=== PATIENT | male | born 1980 | race Caucasian/White ===

== ENCOUNTER 2018-07-03 22:31 | Emergency (ER) | payer OTHER, SELFPAY ==
[2018-07-03 22:33] VITALS: BP 117/77; PULSE 97; RESP 15; TEMP 36.4; O2SAT 96; BMI 29.9
[2018-07-03 22:46] VITALS: BP 158/90; PULSE 88; RESP 16; TEMP 36.7; O2SAT 95
--- NOTE | 2018-07-03 23:15 | ED.DCSUM_ITS ---
History of Present Illness Chief Complaint: Nausea/Vomiting/Diarrhea Informant: Patient Onset: Days - 3 Context: Gradual Onset Timing: Intermittent Quality: nonbloody diarrhea, nonbloody/nonbilious emesis Current Severity: Severe Maximum Severity: Severe Worsened by: eating/drinking Relieved by: nothing Associated Symptoms: malaise, asthma wheezing, abd sore but no sig pain, dark urine w less OP Narrative: No known sick contacts. He has been having fevers off and on, not today. He is feeling malaised. He is healthy otherwise except for his asthma, which is also flaring up a little. No recent travel or antibiotics. - Past Medical History (1) Asthma Status: Chronic Past Medical History - Allergies and Home Meds Allergies/Adverse Reactions: Allergies amoxicillin Allergy (Verified 07/03/18 22:36) Hives Primary Care Physician: Lea Dinh,Out of [Primary Care Provider] - Smoking Status: Current every day smoker Drugs: None Review of Systems General: Reports: Chills, Fever, Malaise. Denies: Sweats Eyes: Denies: Visual changes - bilaterally, Diplopia ENT: Denies: Rhinorrhea, Sore throat Cardiovascular: Denies: Chest pain, Palpitations Respiratory: Denies: Dyspnea, Cough, Dyspnea on exertion Gastrointestinal: Reports: Nausea, Vomiting, Diarrhea. Denies: Abdominal pain, Melena, Hematochezia Genitourinary: Denies: Dysuria, Hematuria, Frequency Musculoskeletal: Denies: Neck pain, Back pain, Swelling, Extremity Pain Skin: Denies: Rash, Wounds Neurological: Denies: Headache, Weakness, Numbness Psych: Denies: Depression, Anxiety Endocrine: Denies: Polyuria, Polydipsia Hematologic: Denies: Easy bruising, Easy bleeding Allergy: Denies: Swelling of the mouth, Swelling of the tongue Physical Exam Vital Signs/Narrative: Vital Signs Temp Pulse Resp BP Pulse Ox 07/03/18 22:46 98.0 F 88 16 158/90 H 95 07/03/18 22:33 97.5 F L 97 15 117/77 96 Inital Vital Signs reviewed: Yes General: Well nourished, Well developed, - - appears malaised, NAD. keenly alert. Head: Normocephalic, Atraumatic Eyes: Perrl, EOMI ENT: No rhinorrhea, Dry mucous membranes - partially Neck: Supple, Nontender Cardiovascular: Regular rate, Regular rhythm, No murmurs Respiratory: No distress, CTA bilaterally, Chest nontender Abdomen: Soft, Nontender, Nondistended, Normal bowel sounds Back: Nontender, Normal Inspection Extremities: Nontender, No edema Skin: Normal color, No rash Neurological: Alert, Oriented x3, Cranial nerves II-XII grossly intact, Normal Strength, Normal Sensation Psychological: Normal affect Diagnostic/Tx/Re-eval Laboratory Tests 07/03/18 Range/Units 22:55 Sodium 140 (136-145) mmol/L Potassium 3.4 L (3.5-5.1) mmol/L Chloride 108 H (98-107) mmol/L Carbon Dioxide 25.0 (21.0-32.0) mmol/L Anion Gap 7 (5-15) BUN 17 (7-18) mg/dL Creatinine 0.86 (0.70-1.30) mg/dL Estim Creat Clear Calc 117.60 ml/min Est GFR (MDRD) Af Amer 129 (>60) mL/min Est GFR (MDRD) Non-Af 107 (>60) mL/min BUN/Creatinine Ratio 19.9 (10-20) RATIO Glucose 106 (74-106) mg/dL Calcium 8.5 (8.5-10.1) mg/dL - Medical Decision Making Patient has mildly low potassium but the rest of his electrolytes are unremarkable. He was given a liter of fluid and Zofran, he felt better on reevaluation but still felt malaised, which is not unexpected. He passed an oral fluid challenge, declined a request for another bag of fluid, was given a dose of Imodium and potassium and discharged home with a prescription for Zofran. Likely viral illness, supportive care advised and close outpatient follow-up if symptoms do not resolve in another 1-2 days. ED Disposition - Plan for ED Patient: Disposition: Home or Assisted Living Chief Complaint: Nausea/Vomiting/Diarrhea Diagnosis: Viral gastroenteritis, Hypokalemia due to loss of potassium Instructions: ED Gastroenteritis Viral Prescriptions: Ondansetron [Zofran] 8 mg PO Q8H PRN PRN #10 tab PRN Reason: Nausea Referrals: [facility] Doctor,Out of [Primary Care Provider] - 3-5 Days if not improving
[2018-07-03] MEDS: 0.9% Normal Saline 1,000 ML 999 ML IV (23:16)
[2018-07-03] MEDS: Ondansetron 4 MG/2 ML Vial IV (23:17)
[2018-07-03 23:25] LABS: Anion Gap 7 (5-15); BUN 17 mg/dL (7-18); BUN/Creat Ratio 19.9 RATIO (10-20); Calcium,Total 8.5 mg/dL (8.5-10.1); Chloride 108 mmol/L (98-107); Creatinine, Serum 0.86 mg/dL (0.70-1.30); EST Glomerular Filtration Rate 107 mL/min (>60); Est Glom Filt Rate - Afr Amer 129 mL/min (>60); Glucose 106 mg/dL (74-106); Potassium 3.4 mmol/L (3.5-5.1); Sodium Level 140 mmol/L (136-145)
[2018-07-03 23:29] VITALS: PULSE 80; RESP 16
[2018-07-04] MEDS: Ipratropium/Albuterol Sulfate 3 ML AMPUL.NEB INHALATION (00:35)
[2018-07-04 00:52] VITALS: BP 125/76; PULSE 82; RESP 16; TEMP 36.8; O2SAT 98
[2018-07-04 00:54] VITALS: BP 125/76; PULSE 82; RESP 16; O2SAT 98
== END 2018-07-04 00:54 | disposition home or self-care (01) ==
PROVIDERS: Emergency Provider Emergency Medicine
DX: A08.4 Viral intestinal infection, unspecified (principal); E87.6 Hypokalemia; J45.909 Unspecified asthma, uncomplicated; F17.200 Nicotine dependence, unspecified, uncomplicated
CPT/HCPCS: 80048; 94640; 96361; 96374; 99285; J7030; A4216; J2405

== ENCOUNTER 2018-08-02 00:53 | Emergency (ER) | payer SELFPAY ==
[2018-08-02 00:56] VITALS: BP 153/102; PULSE 92; RESP 18; TEMP 36.4; O2SAT 97; BMI 30.8
--- NOTE | 2018-08-02 01:12 | ED.DCSUM_ITS ---
- ER Visit Summary Date of Service: 08/02/18 Chief Complaint: Facial pain and swelling History of Present Illness: The patient is a 37 M who presents with left facial pain and swelling. He states that he knows he has bad teeth. He has had multiple prior dental procedures. He has been complaining of pain in 1 of his left upper teeth and face for a couple of weeks. He has been having some relief with Tylenol and ibuprofen. However his pain was significantly worse today and he also developed facial swelling. No heat or cold sensitivity. No fevers. No nausea vomiting diarrhea. Physical Examination: Afebrile vitals are unremarkable except blood pressure 153/102 Patient appears uncomfortable There is some left facial edema Widespread dental decay severe decay of the left maxillary first premolar with tenderness on palpation or percussion No trismus, clear voice Neck supple no lymphadenopathy Test Results: Not indicated Emergency Department Course and Treatment: Patient has findings consistent with a dental abscess. I do not appreciate a focal area of fluctuance amenable to incision and drainage here in the emergency department. Patient will be treated with clindamycin. He was also given [place] for pain control. He was advised to follow-up with a dentist and was given a list of dental clinics in the area. Treatment Plan: [] Disposition: Discharge Impression: Dental abscess This note was generated with eMagin dictation software. It may contain incorrect words, spelling, and punctuation that were not noted in review of the chart prior to signing ED Disposition - Plan for ED Patient: Chief Complaint: Dental Referrals: [facility] Doctor,Out of [Primary Care Provider] -
--- NOTE | 2018-08-02 01:12 | ED.DEP ---
ED Disposition - Plan for ED Patient: Chief Complaint: Dental Instructions: ED Abscess Dental Prescriptions: Hydrocodone Bitart/Apap 5-325 [[place] 5MG-325MG] 1 tablet PO Q6H PRN 2 Days #8 tablet PRN Reason: Pain Clindamycin HCl [Cleocin] 300 mg PO TID #30 capsule Referrals: [facility] Doctor,Out of [Primary Care Provider] -
--- NOTE | 2018-08-02 01:13 | DCINST.ED_ITS ---
ED Disposition - Plan for ED Patient: Chief Complaint: Dental Instructions: ED Abscess Dental Prescriptions: Hydrocodone Bitart/Apap 5-325 [[place] 5MG-325MG] 1 tablet PO Q6H PRN 2 Days #8 tablet PRN Reason: Pain Clindamycin HCl [Cleocin] 300 mg PO TID #30 capsule Referrals: [facility] Doctor,Out of [Primary Care Provider] -
[2018-08-02] MEDS: HYDROcodone Bitartrate/Apap 5/325 Tablet PO (01:19)
[2018-08-02] MEDS: Clindamycin HCl 150 MG Capsule 300 MG PO (01:19)
== END 2018-08-02 01:36 | disposition home or self-care (01) ==
LOC: ED 01:25
PROVIDERS: Emergency Provider Emergency Medicine
DX: K04.7 Periapical abscess without sinus (principal); K02.9 Dental caries, unspecified; J45.909 Unspecified asthma, uncomplicated; Z72.0 Tobacco use; Z79.899 Other long term (current) drug therapy
CPT/HCPCS: 99283

== ENCOUNTER 2018-10-20 16:53 | Emergency (ER) | payer SELFPAY ==
[2018-10-20 16:54] VITALS: BP 158/98; PULSE 107; RESP 16; TEMP 36.4; O2SAT 98; BMI 31.6
--- NOTE | 2018-10-20 17:18 | ED.DEP ---
ED Disposition - Plan for ED Patient: Instructions: ED Tooth Pain Prescriptions: Hydrocodone Bitart/Apap 5-325 [[place] 5MG-325MG] 1 tablet PO Q6H PRN PRN 3 Days #6 tablet PRN Reason: Pain Clindamycin [Cleocin] 300 mg PO 4X/DAY #80 capsule Referrals: [facility] Doctor,Out of [Primary Care Provider] -
--- NOTE | 2018-10-20 17:19 | DCINST.ED_ITS ---
ED Disposition - Plan for ED Patient: Instructions: ED Tooth Pain Prescriptions: Hydrocodone Bitart/Apap 5-325 [[place] 5MG-325MG] 1 tablet PO Q6H PRN PRN 3 Days #6 tablet PRN Reason: Pain Clindamycin [Cleocin] 300 mg PO 4X/DAY #80 capsule Referrals: [facility] Doctor,Out of [Primary Care Provider] -
--- NOTE | 2018-10-20 17:23 | ED.DCSUM_ITS ---
- ER Visit Summary Date of Service: 10/20/18 Chief Complaint: Dental pain History of Present Illness: The patient is a 38 M presenting with dental pain. He states this has been ongoing for the past 2 days. He complains of facial pain and swelling. He denies fever. He does not currently have a dentist. Denies other complaints. Physical Examination: Vitals are stable. Patient is afebrile. Alert no acute distress. HEENT exam widespread dental decay, tenderness left upper molar, no surrounding fluctuance. No sublingual edema. Neck is supple. Lungs are clear and equal bilaterally. Heart is regular rate and rhythm. Extremities are unremarkable. Skin is warm and dry. Remainder of exam is unremarkable. Emergency Department Course and Treatment: Patient was given clindamycin, short course of [place]. He is advised to follow-up with dentist. He is given a dental referral list. Advised to return to the ED for worsening complaints. Disposition: Discharge home Impression: Odontalgia This note was generated with docTrackr dictation software. It may contain incorrect words, spelling, and punctuation that were not noted in review of the chart prior to signing ED Disposition - Plan for ED Patient: Instructions: ED Tooth Pain Prescriptions: Hydrocodone Bitart/Apap 5-325 [[place] 5MG-325MG] 1 tablet PO Q6H PRN PRN 3 Days #6 tablet PRN Reason: Pain Clindamycin [Cleocin] 300 mg PO 4X/DAY #80 capsule Referrals: [facility] Doctor,Out of [Primary Care Provider] -
[2018-10-20] MEDS: HYDROcodone Bitartrate/Apap 5/325 Tablet PO (17:37)
[2018-10-20] MEDS: Clindamycin HCl 150 MG Capsule 300 MG PO (17:38)
== END 2018-10-20 17:39 | disposition home or self-care (01) ==
LOC: ED 17:27
PROVIDERS: Emergency Provider Emergency Medicine
DX: K08.89 Other specified disorders of teeth and supporting structures (principal); J45.909 Unspecified asthma, uncomplicated; K21.9 Gastro-esophageal reflux disease without esophagitis; Z72.0 Tobacco use; Z79.899 Other long term (current) drug therapy
CPT/HCPCS: 99283

== ENCOUNTER 2018-12-28 00:41 | Emergency (ER) | payer SELFPAY ==
[2018-12-28 00:42] VITALS: BP 116/83; PULSE 88; RESP 18; TEMP 36.4; O2SAT 97; BMI 32.6
--- NOTE | 2018-12-28 01:02 | ED.VISSUMM ---
- ER Visit Summary Date of Service: 12/28/18 Chief Complaint: Shortness of breath History of Present Illness: The patient is a 38 M who presents with shortness of breath. He is felt this way for the last few hours. He does have a history of asthma and is out of his albuterol inhaler. He has a mild cough. No chest pain. No vomiting diarrhea or recent illness. No fever Physical Examination: Afebrile vitals normal pulse ox 97% normal respiratory rate Moist mucous membranes Heart regular rate and rhythm Lungs are clear no rales rhonchi wheezing speaking in full sentences no increased work of breathing Alert Test Results: Not indicated Emergency Department Course and Treatment: Patient was given a prescription for an albuterol inhaler which can be filled here from the hospital prior to discharge. Treatment Plan: [] Disposition: Discharge Impression: Asthma This note was generated with [employer]pler dictation software. It may contain incorrect words, spelling, and punctuation that were not noted in review of the chart prior to signing ED Disposition - Plan for ED Patient: Referrals: [facility] Doctor,Out of [Primary Care Provider] -
--- NOTE | 2018-12-28 01:03 | ED.DEP ---
ED Disposition - Plan for ED Patient: Instructions: ASTHMA, Acute (Adult) Prescriptions: Albuterol Inhaler [Ventolin Hfa] 1 - 2 puff INHALATION Q4H PRN PRN #1 inhaler PRN Reason: Wheezing Prescription Printed Referrals: [facility] Doctor,Out of [Primary Care Provider] -
== END 2018-12-28 02:12 | disposition home or self-care (01) ==
LOC: ED 01:14
PROVIDERS: Emergency Provider Emergency Medicine
DX: J45.909 Unspecified asthma, uncomplicated (principal); K21.9 Gastro-esophageal reflux disease without esophagitis; Z72.0 Tobacco use; Z79.899 Other long term (current) drug therapy
CPT/HCPCS: 99283

== ENCOUNTER 2019-08-27 19:55 | Emergency (ER) | payer SELFPAY ==
[2019-08-27 19:57] VITALS: BP 141/98; PULSE 90; RESP 18; TEMP 36.6; O2SAT 98; BMI 34.2
--- NOTE | 2019-08-27 20:14 | ED.VIS.URI ---
History of Present Illness Chief Complaint: Med Refill Detail of Chief Complaint: cough/sob Onset: Weeks - 1 Context: Gradual Onset Timing: Continuous Quality: wheezing Location: chest Current Severity: Mild Maximum Severity: Moderate Worsened by: - - coughing Relieved by: - - albuterol MDI Associated Symptoms: Nasal Congestion, Productive Cough, - - no fevers. Negative for: Headache, Sinus Pressure, Nausea, Vomiting, Shortness of Breath, Hemoptysis Narrative: Patient states he has a history of asthma and used to be on Breo for maintenance which did help, but his insurance ran out, his free Breo for a year ran out, and now he has nothing for maintenance and so needs albuterol daily to help with his wheezing. Currently he has had a cold for about a week and his asthma has been flared up, he has been using his inhaler every 3-4 hours during every day, and states he needs a refill on his inhaler. Denies any fevers. No swelling in his legs. - Past Medical History (1) Asthma Status: Chronic Past Medical History - Allergies and Home Meds Allergies/Adverse Reactions: Allergies amoxicillin Allergy (Verified 08/27/19 19:59) Priya Primary Care Physician: Lea Doctor,Out of [Primary Care Provider] - Smoking Status: Current every day smoker Review of Systems General: Denies: Chills, Fever, Sweats Eyes: Denies: Visual changes - bilaterally, Diplopia ENT: Reports: Rhinorrhea. Denies: Bilateral ear pain, Sore throat Cardiovascular: Denies: Chest pain, Palpitations Respiratory: Reports: Dyspnea, Cough, Sputum - Occasional phlegm, no hemoptysis, Dyspnea on exertion. Denies: Orthopnea Gastrointestinal: Denies: Abdominal pain, Nausea, Vomiting, Diarrhea, Melena, Hematochezia Genitourinary: Denies: Dysuria, Hematuria, Frequency Musculoskeletal: Denies: Back pain, Swelling, Extremity Pain Skin: Denies: Rash, Wounds Neurological: Denies: Headache, Weakness, Numbness Physical Exam Vital Signs/Narrative: Vital Signs Temp Pulse Resp BP Pulse Ox 08/27/19 19:57 97.8 F 90 18 141/98 H 98 Inital Vital Signs reviewed: Yes General: Well nourished, Well developed, - - NAD. Conversive in full sentences. Head: Normocephalic, Atraumatic Eyes: Perrl, EOMI Nose: Normal Inspection, No Rhinorrhea, Congestion Neck: Supple, Nontender Cardiovascular: Regular rate, Regular rhythm, No murmurs Respiratory: No distress, Chest nontender, Wheezing - Mild expiratory. Negative for: Rales, Rhonchi Skin: Normal color, No rash, No Trauma Neurological: Alert, Oriented x3, Cranial nerves II-XII grossly intact, Normal Strength, Normal Sensation, Normal Gait Psychological: Normal affect, Normal Mood Diagnostic/Tx/Re-eval - Medical Decision Making Consistent with a viral URI and exacerbation of his asthma. He was amenable to an injection of Kenalog and a prescription for a new albuterol inhaler. ED Disposition - Plan for ED Patient: Disposition: Home or Assisted Living Diagnosis: Asthma exacerbation, Viral upper respiratory infection Instructions: Understanding Asthma, TRIAMCINOLONE, IM (long acting) Prescriptions: Albuterol Inhaler [Ventolin Hfa] 1 - 2 puff INHALATION Q4H PRN PRN #1 inhaler PRN Reason: Wheezing Prescription Printed Referrals: [facility] Doctor,Out of [Primary Care Provider] - 1 Week if not improving
[2019-08-27] MEDS: Triamcinolone Acetonide 40 MG/ML Vial IM (20:43)
== END 2019-08-27 20:59 | disposition home or self-care (01) ==
PROVIDERS: Emergency Provider Emergency Medicine
DX: J06.9 Acute upper respiratory infection, unspecified (principal); J45.901 Unspecified asthma with (acute) exacerbation; F17.200 Nicotine dependence, unspecified, uncomplicated; Z79.899 Other long term (current) drug therapy
CPT/HCPCS: 96372; 99282

== ENCOUNTER 2019-12-21 18:11 | Emergency (ER) | payer MEDICAID, SELFPAY ==
[2019-12-21 18:13] VITALS: BP 147/93; PULSE 100; RESP 16; TEMP 36.7; O2SAT 95; BMI 35.1
--- NOTE | 2019-12-21 18:30 | ED.VISSUMM ---
- ER Visit Summary Date of Service: 12/21/19 Chief Complaint: Suture removal and medication refill History of Present Illness: The patient is a 39 M who reports that he had stitches placed in his right index finger a couple of weeks ago and needs these taken out. He also needs a refill on his albuterol MDI. He denies any signs of infection. No drainage or pain. Physical Examination: Vitals: Stable. Afebrile. General: Well-nourished and well-developed. Head: Normocephalic atraumatic. Neck: Supple, no lymphadenopathy. No JVD. Nontender. Cardiovascular: Regular rate and rhythm. No murmurs. Respiratory: No respiratory distress. Clear to auscultation bilaterally. Abdominal: Soft, nontender, nondistended, normal bowel sounds. No guarding, rebound, or peritoneal signs. Back: Nontender. Extremities: Nontender, no edema. Right index finger has [address] over the back of the proximal phalanx. The laceration is well-healed. There is slight erythema. There is no induration, fluctuance, drainage, or evidence of infection. Skin: Normal color, no rash. Neurologic: Alert and oriented ?3. Cranial nerves II through XII are intact. Normal strength and sensation. Psych: Normal affect. Emergency Department Course and Treatment: Patient had a stitches removed. He tolerated this well. Treatment Plan: Patient will be discharged with albuterol MDI prescription and instructed to follow-up his primary care physician as needed. Return to the emergency department for any worsening symptoms. Disposition: To home in improved and stable condition. Impression: 1. Suture removal. 2. Medication refill. This note was generated with [employer] dictation software. It may contain incorrect words, spelling, and punctuation that were not noted in review of the chart prior to signing ED Disposition - Plan for ED Patient: Disposition: Home or Assisted Living Instructions: ED Stitches/Staple Removal No Complication Prescriptions: Albuterol Inhaler [Ventolin Hfa] 2 puff INHALATION Q4H PRN PRN #1 inhaler PRN Reason: Wheezing Prescription Printed Referrals: Doctor,Your [STAFF PHYSICIAN] - Keep Brianna appointment
== END 2019-12-21 18:45 | disposition home or self-care (01) ==
LOC: ED 18:43
PROVIDERS: Emergency Provider Emergency Medicine
DX: S61.210D Laceration without foreign body of right index finger without damage to nail, subsequent encounter (principal); X58.XXXD Exposure to other specified factors, subsequent encounter; Z48.02 Encounter for removal of sutures; Z76.0 Encounter for issue of repeat prescription; J45.909 Unspecified asthma, uncomplicated; Z72.0 Tobacco use
CPT/HCPCS: 99282

== ENCOUNTER 2020-02-03 20:42 | Emergency (ER) | payer MEDICAID, SELFPAY ==
[2020-02-03 20:43] VITALS: BP 144/96; PULSE 89; RESP 18; TEMP 36.6; O2SAT 97; BMI 35.7
--- NOTE | 2020-02-03 21:25 | ED.VIS.GEN ---
History of Present Illness Chief Complaint: Med Refill Detail of Chief Complaint: Refill for albuterol MDI and wheezing Informant: Patient Onset: - - States he needs a breathing treatment. States his new physician will not authorize a refill for his albuterol MDI. Context: Sudden Onset Timing: Continuous Quality: Bronchospasm and prescription refill Location: Respiratory Current Severity: Mild Maximum Severity: Mild Worsened by: Exertion Relieved by: Nothing Associated Symptoms: Mild shortness of breath Narrative: 39-year-old male with history of asthma since age 12. Patient states he has a new position. The new physician would not authorize refill for his metered-dose inhaler. She presents for prescription refill. States he is wheezing and would like a treatment. He has no URI symptoms. He has no cardiac symptoms. He has no other complaints. Prior similar symptoms: No Recent Illness/Hospitalization: No - Past Medical History (1) Asthma Status: Chronic Past Medical History - Allergies and Home Meds Allergies/Adverse Reactions: Allergies amoxicillin Allergy (Verified 02/03/20 20:45) Priya Primary Care Physician: Care Physician,No Primary [Primary Care Provider] - Prior records reviewed: Yes Surgical History: noncontributory Lives: Alone Smoking Status: Current every day smoker Alcohol: None Drugs: None Review of Systems General: Denies: Chills, Fever, Malaise, Subjective ENT: Denies: Bilateral ear pain, Rhinorrhea, Sore throat Cardiovascular: Denies: Chest pain, Palpitations Respiratory: Reports: Dyspnea. Denies: Cough, Sputum, Dyspnea on exertion Musculoskeletal: Denies: Myalgias, Arthralgias Neurological: Denies: Headache Physical Exam Vital Signs/Narrative: Vital Signs Temp Pulse Resp BP Pulse Ox 02/03/20 20:43 97.8 F 89 18 144/96 H 97 Inital Vital Signs reviewed: Yes General: Well nourished, Well developed, No Acute Distress Head: Normocephalic, Atraumatic Eyes: Perrl, EOMI. Negative for: Pale conjunctiva, Scleral icterus ENT: Moist mucous membranes, No rhinorrhea Neck: Supple, Nontender, No lymphadenopathy, No JVD Cardiovascular: Regular rate, Regular rhythm, No murmurs, Normal S1 Respiratory: No distress, Chest nontender, Wheezing - Lateral expiratory wheezing with increased expiratory phase. No use of accessory muscles.. Negative for: CTA bilaterally Skin: Normal color, No rash. Negative for: Cyanosis Neurological: Alert, Oriented x3, Cranial nerves II-XII grossly intact, Normal Strength, Normal Sensation Psychological: Normal affect, Normal Mood Diagnostic/Tx/Re-eval - Medical Decision Making Since he is wheezing he was treated with 6 puffs of albuterol. He was given the metered-dose inhaler to go home with. Exacerbation of asthma due to lack of medication ED Disposition - Plan for ED Patient: Disposition: Home or Assisted Living Diagnosis: Asthma attack, Medication refill Referrals: Care Physician,No Primary [Primary Care Provider] -
== END 2020-02-03 21:55 | disposition home or self-care (01) ==
LOC: ED 21:38
PROVIDERS: Emergency Provider Emergency Medicine
DX: Z76.0 Encounter for issue of repeat prescription (principal); J45.901 Unspecified asthma with (acute) exacerbation; F17.200 Nicotine dependence, unspecified, uncomplicated; Z79.51 Long term (current) use of inhaled steroids; Z79.899 Other long term (current) drug therapy
CPT/HCPCS: 99282

== ENCOUNTER 2020-03-28 16:26 | Emergency (ER) | payer BC, MEDICAID, SELFPAY ==
[2020-03-28 16:27] VITALS: BP 152/79; PULSE 97; RESP 16; TEMP 35.8; O2SAT 97; BMI 34.9
--- NOTE | 2020-03-28 16:31 | ED.VIS.GEN ---
History of Present Illness Chief Complaint: Med Refill Informant: Patient Onset: Days Context: Gradual Onset Timing: Continuous Current Severity: Mild Maximum Severity: Mild Narrative: Patient is a 39-year-old male with history of mild asthma the presents to the emergency department requesting refill for his albuterol inhaler. He states that he does have follow-up in place with primary care, but not until May. He states occasionally, he will have a cough. He does not feel like he is short of breath. He said no wheezing. He denies any fevers or chills. He states he is otherwise been in his normal state of health. Prior similar symptoms: Yes Recent Illness/Hospitalization: No Past Medical History - Allergies and Home Meds Allergies/Adverse Reactions: Allergies amoxicillin Allergy (Verified 03/28/20 16:27) Priya Primary Care Physician: Care Physician,No Primary [Primary Care Provider] - Prior records reviewed: Yes Past Medical History: - - Asthma Surgical History: noncontributory Smoking Status: Current every day smoker Review of Systems General: Denies: Chills, Fever, Sweats Eyes: Denies: Visual changes - bilaterally, Diplopia ENT: Denies: Rhinorrhea, Sore throat Cardiovascular: Denies: Chest pain, Palpitations Respiratory: Denies: Dyspnea, Cough, Dyspnea on exertion Gastrointestinal: Denies: Abdominal pain, Nausea, Vomiting, Diarrhea, Melena, Hematochezia Genitourinary: Denies: Dysuria, Hematuria, Frequency Musculoskeletal: Denies: Back pain, Extremity Pain Skin: Denies: Rash, Wounds Neurological: Denies: Headache, Weakness, Numbness Physical Exam Vital Signs/Narrative: Vital Signs Temp Pulse Resp BP Pulse Ox 03/28/20 16:27 96.4 F L 97 16 152/79 H 97 Inital Vital Signs reviewed: Yes General: Well nourished, Well developed, No Acute Distress Head: Normocephalic, Atraumatic Eyes: Perrl, EOMI ENT: Moist mucous membranes, No rhinorrhea Neck: Supple, Nontender Cardiovascular: Regular rate, Regular rhythm, No murmurs Respiratory: No distress, CTA bilaterally, Chest nontender Abdomen: Soft, Nontender, Nondistended, Normal bowel sounds Back: Nontender, Normal Inspection Extremities: Nontender, No edema Skin: Normal color, No rash Neurological: Alert, Oriented x3, Cranial nerves II-XII grossly intact, Normal Strength, Normal Sensation Psychological: Normal affect, Normal Mood Diagnostic/Tx/Re-eval - Medical Decision Making The patient is not wheezing. He has no tachypnea or hypoxia. I will give him a refill of his inhaler. I do not feel he needs a treatment at this time. He is comfortable with this plan of care. Impression 1. Medication refill ED Disposition - Plan for ED Patient: Instructions: Med Refill Prescriptions: Albuterol Inhaler [Ventolin Hfa] 2 puff INHALATION Q4H PRN PRN #1 inhaler PRN Reason: Wheezing Prescription Printed Referrals: Care Physician,No Primary [Primary Care Provider] -
== END 2020-03-28 16:49 | disposition home or self-care (01) ==
PROVIDERS: Emergency Provider Emergency Medicine
DX: Z76.0 Encounter for issue of repeat prescription (principal); J45.909 Unspecified asthma, uncomplicated; F17.200 Nicotine dependence, unspecified, uncomplicated
CPT/HCPCS: 99282

== ENCOUNTER 2020-05-06 14:51 | Emergency (ER) | payer BC, MEDICAID, SELFPAY ==
[2020-05-06 14:52] VITALS: BP 148/75; PULSE 98; RESP 18; TEMP 35; O2SAT 97; BMI 34.2
[2020-05-06 15:26] VITALS: BP 148/75; PULSE 98; RESP 18; TEMP 35; O2SAT 97
--- NOTE | 2020-05-06 15:26 | ED.DCSUM_ITS ---
- ER Visit Summary Date of Service: 05/06/20 Chief Complaint: Shortness of breath, chills, nausea, vomiting, and diarrhea History of Present Illness: The patient is a 39 M who presents with shortness of breath, chills, nausea, vomiting, and diarrhea that is been constant for the past 5 days. Patient does not have a thermometer did not take his temperature. Patient admits to subjective fevers and chills. Patient also admits to some sweats. Patient states he feels like he has some burning in his chest. Patient states he is coughing up some yellow sputum. Patient denies any loss of taste or smell. Patient states nothing makes his breathing better or worse. Patient states he used his albuterol inhaler with no improvement. Patient states his cousin recently tested positive for COVID-19. Patient denies any direct contact with his cousin. Patient states she has been in contact with his mother who has been in contact with his cousin. Physical Examination: Vital signs are stable. Patient is afebrile. Patient is in no acute distress. Oral mucosa is pink and moist. Neck is supple. Trachea is midline. There is no JVD noted. Heart was regular rate and rhythm. Lungs are clear and equal bilaterally. Abdomen is soft. Bowel sounds are normal. There is no tenderness. There is no rebound or guarding noted. Skin is warm dry. Cranial nerves II through XII are intact. There are no focal motor or sensory deficits noted. Extremities are intact. There is no calf tenderness or edema. Test Results: CBC and metabolic profile were obtained and within normal limits. A send out COVID-19 test was ordered and is pending. Portable chest x-ray was obtained. There are some interstitial markings of possible early bronchial disease. This was interpreted by the radiologist and reviewed by myself. Emergency Department Course and Treatment: Patient was given albuterol inhaler with 6 puffs here. Patient was given the inhaler to go home with. Patient was instructed to follow-up with his primary care physician in 3 to 5 days for further evaluation and test results. Patient was instructed return if worse in any way. Patient understood and was agreeable with the plan. All questions were answered. Disposition: Discharge home Impression: 1. Viral upper respiratory infection 2. Possible COVID-19 This note was generated with [employer] software. It may contain incorrect words, spelling, and punctuation that were not noted in review of the chart prior to signing ED Disposition - Plan for ED Patient: Disposition: Home or Assisted Living Diagnosis: Viral URI with cough Instructions: ED URI Viral Referrals: Tawanda Newman MD [NON-STAFF] - 5-7 Days
[2020-05-06 15:53] LABS: Absolute Lymphocyte Count 2.69 X10^3/uL (0.83-4.51); Absolute Neutrophil Count 5.5 X10^3/uL (2.0-7.7); Basophil# 0.13 X10^3/uL; Basophil% 1.4 % (0-1); Eosinophil# 0.34 X10^3/uL; Eosinophils% 3.6 % (0-5); Hematocrit 46.4 % (40-54); Hemoglobin 15.4 g/dL (13.0-16.5); Lymphocyte # 2.69 X10^3/ul (4.0); Lymphocyte % 28.3 % (19-41); Mean Corp Hgb Conc 33.2 g/dL (32-36); Mean Corpuscular Hgb 29.2 pg (27.0-32.0); Mean Corpuscular Volume 87.9 fL (80-94); Mean Platelet Vol. 9.2 fl (6.2-12.0); Monocyte# 0.78 X10^3/uL; Monocyte% 8.2 % (0-10); NRBC Flagged by Analyzer 0 % (0-5); Neutrophil # 5.49 X10^3/uL (2.7-7.7); Neutrophil % 57.6 % (47-70); Platelet Count 454 K/mm3 (150-450); RBC Distribution Width CV 13.1 % (11.6-14.6); RBC Distribution Width SD 42.3 fl (35.1-43.9); Red Blood Count 5.28 M/mm3 (4.6-6.2); White Blood Count 9.5 K/mm3 (4.4-11.0)
--- NOTE | 2020-05-06 15:55 | RAD_ITS ---
STUDY: X-RAY CHEST REASON FOR EXAM: Male, 39 years old. sob, chills, vomiting, diarrhea. TECHNIQUE: Frontal view of the chest COMPARISON: None. FINDINGS: Examination is technically limited. The lungs are clear and expanded. However, interstitial markings are coarsened in the mid lungs. There is no demonstrated pleural abnormality. Normal size heart. Normal mediastinum and marlen. Normal visualized pulmonary arteries. Normal visualized aortic arch and descending thoracic aorta. Normal visualized thoracic spine. Normal visualized ribs, clavicles, and shoulders. There is no demonstrated abnormality of the visualized soft tissue structures of the upper abdomen. RAD/Chest 1 View (Portable) IMPRESSION: Coarsened interstitial markings, unclear etiology. Recommend repeating with improved technique, possibly early bronchial disease. Electronically Signed: Ada Salas, at 16:08 EDT Tel , Service support ,
[2020-05-06 16:11] LABS: ALB/GLOB Ratio 0.9 RATIO (0.9-2.4); AST(SGOT) 18 U/L (15-37); Alanine Aminotransfer ALT/SGPT 43 U/L (16-61); Albumin, Serum 3.8 g/dL (3.2-5.0); Alkaline Phosphatase 84 U/L (45-117); Anion Gap 6 (5-15); BUN 15 mg/dL (7-18); BUN/Creat Ratio 13.5 RATIO (10-20); Calcium,Total 9.2 mg/dL (8.5-10.1); Chloride 107 mmol/L (98-107); Creatinine, Serum 1.11 mg/dL (0.70-1.30); EST Glomerular Filtration Rate 78 mL/min (>60); Est Glom Filt Rate - Afr Amer 95 mL/min (>60); Estimated Creatinine Clearance 86.44 ml/min; Globulin 4.1 g/dL (2.2-4.2); Glucose 94 mg/dL (74-106); Protein, Total 7.9 g/dL (6.4-8.2); Sodium Level 139 mmol/L (136-145)
[2020-05-06 17:08] VITALS: BP 126/85; PULSE 87; RESP 16; O2SAT 98
== END 2020-05-06 17:10 | disposition home or self-care (01) ==
PROVIDERS: Emergency Provider Emergency Medicine
DX: J06.9 Acute upper respiratory infection, unspecified (principal); Z20.828 Contact with and (suspected) exposure to other viral communicable diseases; R06.02 Shortness of breath; R11.2 Nausea with vomiting, unspecified; R19.7 Diarrhea, unspecified
CPT/HCPCS: 36415; 71045; 80053; 85025; 87635; 99283; U0003

== ENCOUNTER 2020-05-13 21:38 | Emergency (ER) | payer BC, MEDICAID, SELFPAY ==
[2020-05-13 21:38] VITALS: BP 153/102; PULSE 96; RESP 18; TEMP 36.3; O2SAT 97; BMI 34.2
--- NOTE | 2020-05-13 22:29 | ED.VISSUMM ---
- ER Visit Summary Date of Service: 05/13/20 Chief Complaint: Medication refill History of Present Illness: The patient is a 39 M who presents requesting a refill of his inhaler. Patient states he is out of his inhaler. Patient states he cannot get into his primary care physician until August. Patient states he is a new patient and cannot do telehealth. Patient has been getting refills of his inhaler here in the emergency department. Patient states he feels some tightness in his chest. Patient states it is worse with activity. Patient states he had a recent Covid test which was negative approximately 1 week ago. Physical Examination: Vital signs are stable. Patient is afebrile. Patient is in no acute distress. Oral mucosa is pink and moist. Neck is supple. Trachea is midline. There is no JVD noted. Heart was regular rate and rhythm. Lungs showed mild expiratory wheezing. There is good respiratory effort. There are no retractions noted. Abdomen is soft. Bowel sounds are normal. There is no tenderness. There is no rebound or guarding noted. Skin is warm dry. Cranial nerves II through XII are intact. There are no focal motor or sensory deficits noted. Extremities are intact. There is no calf tenderness or edema. Emergency Department Course and Treatment: Patient was given a DuoNeb aerosol here. Patient was given a prescription for an albuterol inhaler. I discussed with the patient that there are more puffs on the inhalers that are prescribed from the pharmacy than what we give out here. Patient was instructed to follow-up with his primary care physician in 5 to 7 days. Patient also was advised that if he is still unable to get into his primary care physician before August he may need to find a new primary care physician. Patient understood and was agreeable with the plan. All questions were answered. Disposition: Discharge home Impression: Asthma This note was generated with [employer] dictation software. It may contain incorrect words, spelling, and punctuation that were not noted in review of the chart prior to signing ED Disposition - Plan for ED Patient: Disposition: Home or Assisted Living Diagnosis: Asthma Instructions: Med Refill, ED Inhaler Use Prescriptions: Albuterol Inhaler [Ventolin Hfa] 1 - 2 puff INHALATION Q4H PRN PRN #1 inhaler PRN Reason: Wheezing Prescription Printed Referrals: Care Physician,No Primary [Primary Care Provider] - 3-5 Days
[2020-05-13 22:47] VITALS: PULSE 87; RESP 16
[2020-05-13] MEDS: Ipratropium/Albuterol Sulfate 3 ML AMPUL.NEB INHALATION (22:47)
[2020-05-13 23:10] VITALS: RESP 16; O2SAT 98
== END 2020-05-13 23:27 | disposition home or self-care (01) ==
LOC: ED 22:39
PROVIDERS: Emergency Provider Emergency Medicine
DX: J45.909 Unspecified asthma, uncomplicated (principal); Z76.0 Encounter for issue of repeat prescription; K21.9 Gastro-esophageal reflux disease without esophagitis; Z72.0 Tobacco use
CPT/HCPCS: 94640; 99282

== ENCOUNTER 2021-09-11 16:22 | Emergency (ER) | payer MEDICAID, SELFPAY ==
[2021-09-11 16:23] VITALS: BP 161/110; PULSE 87; RESP 18; TEMP 36.6; O2SAT 96; BMI 41.0
[2021-09-11 16:40] VITALS: BP 150/114
--- NOTE | 2021-09-11 16:42 | EDS_ITS ---
HPI History of Present Illness Chief Complaint: Edema Informant: patient Narrative Narrative: Patient presents with bilateral swelling around his ankles. He thinks this is really been notable for just a few days. He states other than that he has no symptoms at all. No dyspnea or chest pain. He has gained 50 to 60 pounds in the last year but none of that is acute or recent. No injury or trauma. You know he has significant asthma, he does not feel like that is acting up. 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 Nothing consistently makes this better or worse. He called his primary physician for an appointment and he was referred in here so we can get an ultrasound. Past medical history: Asthma, high cholesterol, GERD, restless leg, migraines Medications reviewed, also include montelukast, Advair, propanolol, gabapentin added 2 weeks ago, statin Allergy to amoxicillin Only surgeries lipoma removal left arm years ago Non-smoker, works full-time [employer] Home Medications omeprazole 10 mg PO DAILY 07/03/18 [History Last Taken Unknown] albuterol sulfate 1 - 2 puff INHALATION Q4H PRN PRN #1 inhaler 05/13/20 [Rx Last Taken Unknown] Allergy/AdvReac Type Severity Reaction Status Date / Time amoxicillin Allergy Hives Verified 09/11/21 16:23 Social History Smoking Status: Current some day smoker tobacco type: cigarettes ROS ROS ED Constitutional Constitutional ED: Denies chills or fever(s) ENT ENT ED: Denies rhinorrhea Cardiovascular Cardiovascular: Denies chest pain, palpitations or racing heartbeat Respiratory/Chest Respiratory/Chest: Denies cough, dyspnea, dyspnea on exertion or sputum Gastrointestinal Gastrointestinal: Denies abdominal pain, nausea or vomiting Genitourinary Genitourinary ED: Reports other Details: Denies any notable change in urine output or starting or stopping stream. ; Denies dysuria, hematuria or urinary frequency Musculoskeletal Musculoskeletal: Reports other Details: Bilateral ankle swelling as in HPI. ; Denies back pain or neck pain Integumentary Denies rash Neurologic Neurologic: Denies headache(s) Endocrine Endocrinology: Denies polydipsia or polyuria Allergic/Immunologic Allergic/Immunologic ED: Denies mouth swelling or urticaria EXAM Physical Exam Const Vital Signs: 09/11/21 16:23 09/11/21 16:40 Temperature 97.8 F Temperature Source Temporal Pulse Rate 87 Respiratory Rate 18 Blood Pressure 161/110 H 150/114 H Blood Pressure Mean 127 126 Pulse Ox 96 Oxygen Delivery Method Room Air Positive well nourished and well developed General Appearance ED: well developed and NAD; Negative for cyanotic or diap horetic HEENT Reports moist mucous membranes; Denies dry mucous membranes Mouth ED: No dry mucous membranes Mouth: No dry mucous membranes Eyes General Eye ED: Negative for pale conjunctiva or scleral icterus Neck no JVD Chest Wall inspection of chest normal Resp normal respiratory effort and clear to auscultation bilaterally Auscultation: Negative for rales, rhonchi or wheezes Cardio regular rate and regular rhythm GI normal to inspection, nondistended, normoactive bowel sounds and non-tender Palpation: soft Back/Spine no CVA tenderness Extremity Extremity Narrative: Legs do show some very subtle swelling around the area of the ankles and top of his feet. But is not actually pitting. There is no erythema. No tenderness. No asymmetry. Distal pulses are normal and intact. No tenderness along the deep venous system. Neuro Sensorium / Orientation: alert Psych mental status grossly normal Skin no rashes or lesions noted MDM MDM MDM Narrative Medical decision making narrative: Patient's blood work shows normal CBC other than mildly low hemoglobin which is not the cause of his symptoms. Potassium is minimally low but will correct with diet. It was 3.4. Glucose is 128. BNP is normal. Ultrasound shows no DVT. I find the patient did have a very salty meal on Saturday. This might be contributing to the symptoms. We discussed cutting back on salt. He should follow-up with his physician regardless of improvement. If he develops worsening swelling, pain, fevers, trouble breathing or chest pain he needs to return. Lab Data Attestation: I reviewed the patient's lab results. Labs: Laboratory Results - last 24 hr 09/11/21 09/11/21 09/11/21 16:50 16:50 16:50 WBC 10.1 RBC 4.20 L Hgb 12.5 L Hct 38.4 L MCV 91.4 MCH 29.8 MCHC 32.6 RDW Std Deviation 43.2 RDW Coeff of Nick 13.0 Plt Count 410 MPV 9.5 Immature Gran % (Auto) 1.400 H Neut % (Auto) 59.3 Lymph % (Auto) 24.7 [place] % (Auto) 9.5 Eos % (Auto) 3.6 Baso % (Auto) 1.5 H Absolute Neuts (auto) 6.0 Absolute Lymphs (auto) 2.50 Nucleated RBC % 0 Sodium 138 Potassium 3.4 L Chloride 105 Carbon Dioxide 26.0 Anion Gap 7 BUN 13 Creatinine 1.04 Estim Creat Clear Calc 91.35 Est GFR (MDRD) Af Amer 101 Est GFR (MDRD) Non-Af 84 BUN/Creatinine Ratio 12.5 Glucose 128 H Calcium 8.9 B-Natriuretic Peptide 15.1 Radiography Diagnostic Testing: Clinical Impression(s) from Imaging Studies Venous Duplex 09/11/21 16:45 IMPRESSION: There is no demonstrated deep venous thrombosis. Electronically Signed: Zhao Abdalla MD at 17:43 EST Reading Location ID and State: [address] [place] [address] , Service support , Discharge Plan Triage Chief Complaint: Edema ED Provider: Gustavo Strong Dx/Rx/DC Orders Clinical Impression: Edema, peripheral Instructions: ED Peripheral Edema, Bilateral Prescriptions: No Action omeprazole 10 MG capsule 10 mg PO DAILY RF: 0 albuterol sulfate 1 INHALER inhaler 1 - 2 puff INHALATION Q4H PRN PRN (Reason: Wheezing) Qty: 1 RF: 0 Primary Care Provider: Care Physician,No Primary Referrals: Care Physician,No Primary [Primary Care Provider] - Activity Restrictions/Additional Instructions: Follow-up with your physician within the next week. Return with pain, fevers, further swelling, trouble breathing or other concerns. Disposition Disposition: Home, Self Care
--- NOTE | 2021-09-11 16:45 | US_ITS ---
STUDY: VENOUS DOPPLER ULTRASOUND - BILATERAL LOWER EXTREMITY REASON FOR EXAM: Male, 40 years old. LEG PAIN AND SWELLING undefined -- SWELLING TECHNIQUE: Ultrasound evaluation of the deep vein system to include reyes-scale imaging and compression was performed. Reyes-scale imaging and Doppler sonographic evaluation, including duplex spectral analysis and qualitative color flow sonography, was performed. COMPARISON: None. FINDINGS: Common Femoral Vein: Normal compression, spontaneity and augmentation. Normal color Doppler. Common Femoral Vein/Greater Saphenous Junction: Normal compression, spontaneity and augmentation. Normal color Doppler. Superficial Femoral Proximal: Normal compression, spontaneity and augmentation. Normal color Doppler. Superficial Femoral Middle: Normal compression, spontaneity and augmentation. Normal color Doppler. Superficial Femoral Distal: Normal compression, spontaneity and augmentation. Normal color Doppler. Popliteal Vein: Normal compression, spontaneity and augmentation. Normal color Doppler. Posterior Tibial Vein: Normal compression, spontaneity and augmentation. Normal color Doppler. Peroneal Vein: Normal compression, spontaneity and augmentation. Normal color Doppler. There is no demonstrated deep venous thrombosis. US/Venous Duplex Imag/Romulo Extrem IMPRESSION: There is no demonstrated deep venous thrombosis. Electronically Signed: Zhao Abdalla MD at 17:43 EST ,
[2021-09-11 17:20] LABS: Basophil# 0.15 X10^3/uL; Basophil% 1.5 % (0-1); Eosinophil# 0.36 X10^3/uL; Eosinophils% 3.6 % (0-5); Hematocrit 38.4 % (40-54); Hemoglobin 12.5 g/dL (13.0-16.5); Lymphocyte % 24.7 % (19-41); Mean Corp Hgb Conc 32.6 g/dL (32-36); Mean Corpuscular Hgb 29.8 pg (27.0-32.0); Mean Corpuscular Volume 91.4 fL (80-94); Mean Platelet Vol. 9.5 fl (6.2-12.0); Monocyte# 0.96 X10^3/uL; Monocyte% 9.5 % (0-10); NRBC Flagged by Analyzer 0 % (0-5); Neutrophil # 6.01 X10^3/uL (2.7-7.7); Neutrophil % 59.3 % (47-70); Platelet Count 410 K/mm3 (150-450); RBC Distribution Width SD 43.2 fl (35.1-43.9); White Blood Count 10.1 K/mm3 (4.4-11.0)
[2021-09-11 17:31] LABS: Anion Gap 7 (5-15); BUN 13 mg/dL (7-18); BUN/Creat Ratio 12.5 RATIO (10-20); Calcium,Total 8.9 mg/dL (8.5-10.1); Chloride 105 mmol/L (98-107); Creatinine, Serum 1.04 mg/dL (0.70-1.30); EST Glomerular Filtration Rate 84 mL/min (>60); Est Glom Filt Rate - Afr Amer 101 mL/min (>60); Estimated Creatinine Clearance 91.35 ml/min; Glucose 128 mg/dL (74-106); Potassium 3.4 mmol/L (3.5-5.1); Sodium Level 138 mmol/L (136-145)
--- NOTE | 2021-09-11 17:47 | CM.ED ---
SW Note SW met with patient as per registration face sheet patient has no PCP. Patient reports he has PCP, Dr. Lucas in [place]. NO further needs or issues reported at this time. Renee BAGLEY
[2021-09-11 17:50] LABS: BNP,B-Type NATRIURETIC PEPTIDE 15.1 pg/mL (0-100)
[2021-09-11 18:49] VITALS: BP 151/104
== END 2021-09-11 18:52 | disposition home or self-care (01) ==
PROVIDERS: Emergency Provider Emergency Medicine; Visit Provider Emergency Medicine
DX: R60.0 Localized edema (principal); M79.89 Other specified soft tissue disorders; J45.909 Unspecified asthma, uncomplicated; E78.00 Pure hypercholesterolemia, unspecified; G25.81 Restless legs syndrome; K21.9 Gastro-esophageal reflux disease without esophagitis; F17.210 Nicotine dependence, cigarettes, uncomplicated
CPT/HCPCS: 80048; 83880; 85025; 93970; 99282; A4216

== ENCOUNTER 2022-07-23 17:30 | Emergency (ER) | payer MEDICAID, SELFPAY ==
[2022-07-23 17:31] VITALS: BP 178/116; PULSE 91; RESP 18; TEMP 36.1; O2SAT 97; BMI 45.6
--- NOTE | 2022-07-23 19:00 | EX.ED.DYSGE1 ---
HPI History of Present Illness Chief Complaint: Abd Pain Informant: patient Narrative Narrative: Reports sudden fatigue and nausea starting at noon today while at work. Reports myalgias and feeling rundown. Had 2 loose stools. No headaches. Diabetic and asthma history. Nonvaccinated for COVID or flu. Had COVID twice. This feels different. No vomiting. No urinary symptoms. No chest pains mild abdominal cramping. No abdominal surgeries. PFSH PFSH Home Medications albuterol sulfate 90 mcg/actuation aerosol inhaler 1 - 2 puff inhalation Q4H PRN PRN Wheezing ##1 05/13/20 [Rx Last Taken Unknown] gabapentin 100 mg capsule 300 mg PO QHS 07/23/22 [History Last Taken Unknown] mometasone-formoterol HFA 200 mcg-5 mcg/actuation aerosol inhaler (Dulera) puff inhalation BID 07/23/22 [History Last Taken Unknown] omeprazole 40 mg capsule,delayed release 40 mg PO DAILY 07/23/22 [History Last Taken Unknown] ondansetron 4 mg disintegrating tablet 4 mg PO Q6H PRN nausea and vomiting #10 tabs 07/23/22 [Rx Last Taken Unknown] propranolol 10 mg tablet 10 mg PO DAILY 07/23/22 [History Last Taken Unknown] Allergy/AdvReac Type Severity Reaction Status Date / Time amoxicillin Allergy Hives Verified 09/11/21 16:23 Social History Smoking Status: Current some day smoker tobacco type: cigarettes ROS ROS ED Constitutional Constitutional ED: Denies chills, fever(s) or sweats Eyes Eyes: Denies change in vision ENT ENT ED: Denies dysphagia or sore throat Cardiovascular Cardiovascular: Denies chest pain, leg edema, palpitations or racing heartbeat Respiratory/Chest Respiratory/Chest: Denies cough, dyspnea or dyspnea on exertion Gastrointestinal Gastrointestinal: Reports nausea; Denies abdominal pain, diarrhea or vomiting Genitourinary Genitourinary ED: Denies dysuria, hematuria or urinary frequency Musculoskeletal Musculoskeletal: Reports myalgias; Denies back pain, extremity pain or neck pain Integumentary Denies rash or wounds Neurologic Neurologic: Reports weakness; Denies headache(s) or paresthesias EXAM Physical Exam Const Vital Signs: 07/23/22 17:31 07/23/22 20:00 Temperature 97.0 F L Temperature Source Temporal Pulse Rate 91 62 Respiratory Rate 18 15 Blood Pressure 178/116 H 113/74 Blood Pressure Mean 136 87 Pulse Ox 97 97 Oxygen Delivery Method Room Air Room Air Positive well nourished and well developed Constitutional Narrative: Nontoxic mild fatigue. General Appearance ED: well developed HEENT Reports moist mucous membranes normocephalic and atraumatic Eyes PERRL, EOMs intact bilaterally and conjunctivae normal General Eye ED: Yes normal appearance of both eyes Neck no lymphadenopathy and supple General: Negative for tenderness Chest Wall Chest: Negative for tenderness Resp normal respiratory effort and normal air movement Effort and Inspection: symmetric chest movement; Negative for respiratory distress Cardio regular rate, regular rhythm and no murmurs Peripheral Pulses: pulses 2+ throughout GI normal to inspection, nondistended, normoactive bowel sounds and non-tender GI Narrative: Negative Thomas's or McBurney's tenderness. Palpation: Negative for guarding or rebound tenderness present Back/Spine no CVA tenderness and no thoracic nor lumbar tenderness Extremity normal to inspection General Extremety ED: Negative for edema or tenderness General Extremity: Negative for edema Neuro oriented x3 and no sensory deficits noted Sensorium / Orientation: awake and alert Skin no rashes or lesions noted and no wounds MDM MDM MDM Narrative Medical decision making narrative: Patient presenting with primary nausea, however reports myalgias and generalized weakness. He is a diabetic. Differential is viral syndrome from influenza versus COVID. Being diabetic, could be early DKA. He has no cough or concerns for upper respiratory illness. I did check labs and reviewed them, glucose 160 5. Therefore not likely DKA. White count 11.5. Urine leukocytes however no other findings. Rapid COVID influenza negative. Discussed with the patient possibility of false negative testing with acute onset of symptoms today. He is appears more of a flulike illness could be influenza. Clinically feeling better after treatment with fluids and Zofran he is able to tolerate oral fluids. Discussed return precautions. All questions were answered. Lab Data Attestation: I reviewed the patient's lab results. Labs: Laboratory Results - last 24 hr 07/23/22 07/23/22 07/23/22 18:59 18:59 19:15 WBC 11.5 H RBC 4.29 L Hgb 12.3 L Hct 38.2 L MCV 89.0 MCH 28.7 MCHC 32.2 RDW Std Deviation 44.4 H RDW Coeff of Nick 13.8 Plt Count 474 H MPV 9.1 Immature Gran % (Auto) 1.500 H Neut % (Auto) 67.4 Lymph % (Auto) 21.6 [place] % (Auto) 7.0 Eos % (Auto) 1.6 Baso % (Auto) 0.9 Absolute Neuts (auto) 7.7 Absolute Lymphs (auto) 2.48 Nucleated RBC % 0 Sodium 135 L Potassium 3.6 Chloride 101 Carbon Dioxide 29.0 Anion Gap 5 BUN 11 Creatinine 0.93 Estim Creat Clear Calc 101.13 Est GFR (MDRD) Af Amer 115 Est GFR (MDRD) Non-Af 95 BUN/Creatinine Ratio 11.8 Glucose 161 H Calcium 8.9 Urine Color Yellow Urine Clarity Clear Urine pH 6.5 Ur Specific [place] 1.015 Urine Protein 30 H Urine Glucose (UA) Normal Urine Ketones 5 H Urine Occult Blood Negative Urine Nitrite Negative Urine Bilirubin Negative Urine Urobilinogen Normal Ur Leukocyte Esterase 25 H Urine RBC 0 SEEN Urine WBC 0 SEEN Ur Squamous Epith Cells 0 SEEN Urine Bacteria 0 SEEN Urine Mucus 0 SEEN Discharge Plan Triage Chief Complaint: Abd Pain ED Provider: Chauncey Huerta Dx/Rx/DC Orders Clinical Impression: Flu-like symptoms, Nausea, History of diabetes mellitus Instructions: ED Influenza (Adult) Prescriptions: New ondansetron 4 mg tablet,disintegrating 4 mg PO Q6H PRN (Reason: nausea and vomiting) Qty: 10 0RF No Action albuterol sulfate 1 INHALER inhaler 1 - 2 puff INHALATION Q4H PRN PRN (Reason: Wheezing) Qty: 1 0RF omeprazole 40 mg capsule,delayed release(DR/EC) 40 mg PO DAILY Label Comments: take 1 capsule by mouth once daily propranolol 10 mg tablet 10 mg PO DAILY Label Comments: take 1 tablet by mouth once daily gabapentin 100 mg capsule 300 mg PO QHS Label Comments: TAKE 2 CAPSULES BY MOUTHEAT BEDTIMEE Dulera 200-5 mcg/actuation HFA aerosol inhaler INHALATION BID Label Comments: inhale 1 puff as directed twice a day Primary Care Provider: Osmel Lucas Referrals: Care Physician,No Primary [Non-Staff] - Activity Restrictions/Additional Instructions: Your symptoms appear more influenza-like symptoms. Labs are stable your flu and COVID-negative however possibly could be falsely negative. Continue oral fluids, nausea medicine as needed. Return if any worsening symptoms. Otherwise follow-up with your doctor. Disposition Disposition: Home, Self Care Discharge Date/Time: 07/23/22 21:30
[2022-07-23] MEDS: 0.9% Normal Saline 1,000 ML 999 ML IV (19:17)
[2022-07-23] MEDS: Ondansetron 4 MG/2 ML Vial IV (19:17)
[2022-07-23 19:19] LABS: Absolute Lymphocyte Count 2.48 X10^3/uL (0.83-4.51); Absolute Neutrophil Count 7.7 X10^3/uL (2.0-7.7); Basophil% 0.9 % (0-1); Eosinophil# 0.18 X10^3/uL; Eosinophils% 1.6 % (0-5); Hematocrit 38.2 % (40-54); Hemoglobin 12.3 g/dL (13.0-16.5); Lymphocyte # 2.48 X10^3/ul (0.83-4.51); Lymphocyte % 21.6 % (19-41); Mean Corp Hgb Conc 32.2 g/dL (32-36); Mean Corpuscular Hgb 28.7 pg (27.0-32.0); Mean Platelet Vol. 9.1 fl (6.2-12.0); NRBC Flagged by Analyzer 0 % (0-5); Neutrophil # 7.73 X10^3/uL (2.7-7.7); Neutrophil % 67.4 % (47-70); Platelet Count 474 K/mm3 (150-450); RBC Distribution Width CV 13.8 % (11.6-14.6); RBC Distribution Width SD 44.4 fl (35.1-43.9); Red Blood Count 4.29 M/mm3 (4.6-6.2); White Blood Count 11.5 K/mm3 (4.4-11.0)
[2022-07-23 19:29] LABS: Bacteria 0 SEEN /hpf (None Seen); Mucous, Urine 0 SEEN /hpf (<or=2+); Red Blood Cells-Urine 0 SEEN /hpf (0-5); Squamous Epithelial Cells - UA 0 SEEN /hpf (0-5); White Blood Cells 0 SEEN /hpf (0-5)
[2022-07-23 19:43] LABS: BUN 11 mg/dL (7-18); Creatinine, Serum 0.93 mg/dL (0.70-1.30); EST Glomerular Filtration Rate 95 mL/min (>60); Estimated Creatinine Clearance 101.13 ml/min; Glucose 161 mg/dL (74-106)
[2022-07-23 19:44] LABS: Anion Gap 5 (5-15); BUN/Creat Ratio 11.8 RATIO (10-20); Calcium,Total 8.9 mg/dL (8.5-10.1); Chloride 101 mmol/L (98-107); Est Glom Filt Rate - Afr Amer 115 mL/min (>60); Potassium 3.6 mmol/L (3.5-5.1); Sodium Level 135 mmol/L (136-145)
[2022-07-23 19:51] LABS: Color, Urine Yellow (Yellow); Glucose, Dipstick Normal (Normal); Ketone-Dipstick 5 mg/dl (Negative); Leukocyte Esterase-Dipstick 25 /ul (Negative); Nitrite-Dipstick Negative (Negative); Occult Blood-Urine Negative /ul (Negative); Protein-Dipstick 30 mg/dl (Negative); Specific Gravity, Urine 1.015 (1.002-1.030); Urine Bilirubin Dipstick Negative (Negative); Urine Clarity Clear (Clear); Urine Urobilinogen Normal (Normal); Urine pH 6.5 (5.0 - 8.0)
[2022-07-23 20:00] VITALS: BP 113/74; PULSE 62; RESP 15; O2SAT 97
== END 2022-07-23 21:30 | disposition home or self-care (01) ==
PROVIDERS: Emergency Provider Emergency Medicine; PCP Family Medicine; Visit Provider Emergency Medicine
DX: R11.0 Nausea (principal); E11.9 Type 2 diabetes mellitus without complications; F17.210 Nicotine dependence, cigarettes, uncomplicated; Z20.822 Contact with and (suspected) exposure to COVID-19; J45.909 Unspecified asthma, uncomplicated; Z28.310 Unvaccinated for COVID-19
CPT/HCPCS: 80048; 81001; 85025; 87428; 96361; 96374; 99282; J7030; A4216; J2405

== ENCOUNTER 2022-09-13 16:57 | Emergency (ER) | payer MEDICAID, SELFPAY ==
[2022-09-13 16:58] VITALS: BP 125/89; PULSE 102; RESP 18; TEMP 36.1; O2SAT 98; BMI 43.5
--- NOTE | 2022-09-13 17:12 | EDS_ITS ---
HPI History of Present Illness Chief Complaint: Hyperglycemia Narrative Narrative: Patient presents with hyperglycemia. He is supposed to be on metformin but he does not take it due to side effects. He has polyuria and polydipsia but otherwise he has no chest pain shortness of breath he has no abdominal pain he has no nausea or vomiting or any other symptoms. He was told to come to the ED by PCP. His sugars have been in the 400 and 500s for the past few weeks. [facility] Medical History (Updated 09/13/22 @ 19:[address] Mayur Briceño MD) Diabetes Hypertension Home Medications albuterol sulfate 90 mcg/actuation aerosol inhaler 1 - 2 puff inhalation Q4H PRN PRN Wheezing ##1 05/13/20 [Rx Last Taken Unknown] gabapentin 100 mg capsule 300 mg PO QHS 07/23/22 [History Last Taken Unknown] mometasone-formoterol HFA 200 mcg-5 mcg/actuation aerosol inhaler (Dulera) 1 puff inhalation BID 07/23/22 [History Last Taken Unknown] omeprazole 40 mg capsule,delayed release 40 mg PO DAILY 07/23/22 [History Last Taken Unknown] ondansetron 4 mg disintegrating tablet 4 mg PO Q6H PRN nausea and vomiting #10 tabs 07/23/22 [Rx Last Taken Unknown] propranolol 10 mg tablet 10 mg PO DAILY 07/23/22 [History Last Taken Unknown] glipizide 5 mg tablet 5 mg PO BID #60 tabs 09/13/22 [Rx Last Taken Unknown] lisinopril 10 mg tablet 10 mg PO DAILY 09/13/22 [History Last Taken Unknown] methylprednisolone 4 mg tablets in a dose pack See Rx Instructions .Route .COMPLEX 09/13/22 [History Last Taken Unknown] montelukast 10 mg tablet 10 mg PO DAILY 09/13/22 [History Last Taken Unknown] Allergy/AdvReac Type Severity Reaction Status Date / Time amoxicillin Allergy Hives Verified 09/13/22 16:59 Social History Smoking Status: Current some day smoker tobacco type: cigarettes and e- cigarettes ROS ROS ED ROS Narrative Past medical history: Reviewed Medications: Reviewed Social history: Noncontributory Review of systems: All systems negative except as indicated General: No fever Eyes: No visual changes ENT: No upper airway congestion, normal voice Neck: No neck pain Cardiovascular: No chest pain Respiratory: No shortness of breath or cough Gastrointestinal: No abdominal pain, nausea vomiting or diarrhea Genitourinary: No dysuria Musculoskeletal: Denies myalgias no difficulty with ambulation Skin: No rash Neurological: No memory loss, confusion or any focal weakness Endocrine: Polyuria and polydipsia EXAM Physical Exam Narrative Exam Narrative: Physical exam General: Well nourished, Well developed, No Acute Distress Head: Normocephalic, Atraumatic Eyes: Conjunctiva not pale ENT: Slightly dry mucous membranes Neck: Supple, Nontender, No lymphadenopathy Cardiovascular: Regular rate, Regular rhythm Respiratory: No distress, CTA bilaterally Abdomen: Soft, Nontender, Nondistended Back: Nontender, Normal Inspection. Negative for: CVA tenderness Extremities: Nontender, No edema Skin: Normal color, No rash Neurological: Alert, Normal Strength, Normal Sensation Psychological: Normal affect Const Vital Signs: 09/13/22 16:58 Temperature 97 F L Temperature Source Temporal Pulse Rate 102 H Respiratory Rate 18 Blood Pressure 125/89 H Blood Pressure Mean 101 Pulse Ox 98 Oxygen Delivery Method Room Air MDM MDM MDM Narrative Medical decision making narrative: Patient's work-up is otherwise unremarkable other than hyperglycemia. There is no anion gap, sodium is 128 however I believe this is pseudohyponatremia secondary to the glucose. He tells me that he drinks pop and sweetened sweet tea all day long. I told him to stop this this alone would significantly improve his blood sugars otherwise I will change him to glipizide since he cannot tolerate the metformin. He can follow-up with PCP for further glycemic control. Lab Data Labs: Laboratory Results - last 24 hr 09/13/22 09/13/22 17:25 17:25 WBC 10.9 RBC 4.90 Hgb 14.1 Hct 42.4 MCV 86.5 MCH 28.8 MCHC 33.3 RDW Std Deviation 42.2 RDW Coeff of Nick 13.5 Plt Count 450 MPV 9.4 Immature Gran % (Auto) 1.100 H Neut % (Auto) 58.0 Lymph % (Auto) 32.5 [place] % (Auto) 6.2 Eos % (Auto) 1.0 Baso % (Auto) 1.2 H Absolute Neuts (auto) 6.3 Absolute Lymphs (auto) 3.55 Nucleated RBC % 0 Sodium 128 L Potassium 3.6 Chloride 92 L Carbon Dioxide 25.0 Anion Gap 11 BUN 20 H Creatinine 1.28 Estim Creat Clear Calc 73.48 Est GFR (MDRD) Af Amer 79 Est GFR (MDRD) Non-Af 66 BUN/Creatinine Ratio 15.6 Glucose 535 H* Calcium 9.5 Total Bilirubin 0.40 AST 18 ALT 40 Alkaline Phosphatase 114 Total Protein 8.2 Albumin 3.9 Globulin 4.3 H Albumin/Globulin Ratio 0.9 Discharge Plan Triage Chief Complaint: Hyperglycemia ED Provider: Mayur Briceño Dx/Rx/DC Orders Clinical Impression: Hyperglycemia, Acute dehydration Instructions: High Blood Sugar (Hyperglycemia), Blood Sugar Check Steps Prescriptions: New glipizide 5 mg tablet 5 mg PO BID Qty: 60 0RF No Action albuterol sulfate 1 INHALER inhaler 1 - 2 puff INHALATION Q4H PRN PRN (Reason: Wheezing) Qty: 1 0RF omeprazole 40 mg capsule,delayed release(DR/EC) 40 mg PO DAILY Label Comments: take 1 capsule by mouth once daily propranolol 10 mg tablet 10 mg PO DAILY Label Comments: take 1 tablet by mouth once daily gabapentin 100 mg capsule 300 mg PO QHS Label Comments: TAKE 2 CAPSULES BY MOUTHEAT BEDTIMEE Dulera 200-5 mcg/actuation HFA aerosol inhaler 1 puff INHALATION BID Label Comments: inhale 1 puff as directed twice a day ondansetron 4 mg tablet,disintegrating 4 mg PO Q6H PRN (Reason: nausea and vomiting) Qty: 10 0RF lisinopril 10 mg tablet 10 mg PO DAILY Label Comments: take 1 tablet by mouth once daily montelukast 10 mg tablet 10 mg PO DAILY Label Comments: take 1 tablet by mouth at bedtime methylprednisolone 4 mg tablets,dose pack See Rx Instructions .ROUTE .COMPLEX Label Comments: use as directed FOLLOW DIRECTIONS ON BACK OF FOIL PACK Rx Instructions: 6 day taper started on saturday, pcp informed pt to stop taking starting today d/t high bg Primary Care Provider: Osmel Lucas Referrals: Osmel Lucas MD [Primary Care Provider] - 3-5 Days Disposition Disposition: Home, Self Care
[2022-09-13 17:33] LABS: Absolute Lymphocyte Count 3.55 X10^3/uL (0.83-4.51); Absolute Neutrophil Count 6.3 X10^3/uL (2.0-7.7); Basophil# 0.13 X10^3/uL; Basophil% 1.2 % (0-1); Eosinophil# 0.11 X10^3/uL; Hematocrit 42.4 % (40-54); Hemoglobin 14.1 g/dL (13.0-16.5); Lymphocyte # 3.55 X10^3/ul (0.83-4.51); Lymphocyte % 32.5 % (19-41); Mean Corp Hgb Conc 33.3 g/dL (32-36); Mean Corpuscular Hgb 28.8 pg (27.0-32.0); Mean Corpuscular Volume 86.5 fL (80-94); Mean Platelet Vol. 9.4 fl (6.2-12.0); Monocyte# 0.68 X10^3/uL; Monocyte% 6.2 % (0-10); NRBC Flagged by Analyzer 0 % (0-5); Neutrophil # 6.34 X10^3/uL (2.7-7.7); Platelet Count 450 K/mm3 (150-450); RBC Distribution Width CV 13.5 % (11.6-14.6); RBC Distribution Width SD 42.2 fl (35.1-43.9); White Blood Count 10.9 K/mm3 (4.4-11.0)
[2022-09-13] MEDS: 0.9% Normal Saline 1,000 ML 1000 ML IV (17:36)
[2022-09-13 18:41] LABS: ALB/GLOB Ratio 0.9 RATIO (0.9-2.4); AST(SGOT) 18 U/L (15-37); Alanine Aminotransfer ALT/SGPT 40 U/L (16-61); Albumin, Serum 3.9 g/dL (3.2-5.0); Alkaline Phosphatase 114 U/L (45-117); Anion Gap 11 (5-15); BUN 20 mg/dL (7-18); BUN/Creat Ratio 15.6 RATIO (10-20); Calcium,Total 9.5 mg/dL (8.5-10.1); Chloride 92 mmol/L (98-107); Creatinine, Serum 1.28 mg/dL (0.70-1.30); EST Glomerular Filtration Rate 66 mL/min (>60); Est Glom Filt Rate - Afr Amer 79 mL/min (>60); Estimated Creatinine Clearance 73.48 ml/min; Globulin 4.3 g/dL (2.2-4.2); Glucose 535 mg/dL (74-106); Potassium 3.6 mmol/L (3.5-5.1); Protein, Total 8.2 g/dL (6.4-8.2); Sodium Level 128 mmol/L (136-145)
--- NOTE | 2022-09-13 19:35 | EX.ED.DYSGE1 ---
HPI History of Present Illness Chief Complaint: Hyperglycemia [facility] Medical History (Updated 09/13/22 @ 19:[address] Mayur Briceño MD) Diabetes Hypertension Home Medications albuterol sulfate 90 mcg/actuation aerosol inhaler 1 - 2 puff inhalation Q4H PRN PRN Wheezing ##1 05/13/20 [Rx Last Taken Unknown] gabapentin 100 mg capsule 300 mg PO QHS 07/23/22 [History Last Taken Unknown] mometasone-formoterol HFA 200 mcg-5 mcg/actuation aerosol inhaler (Dulera) 1 puff inhalation BID 07/23/22 [History Last Taken Unknown] omeprazole 40 mg capsule,delayed release 40 mg PO DAILY 07/23/22 [History Last Taken Unknown] ondansetron 4 mg disintegrating tablet 4 mg PO Q6H PRN nausea and vomiting #10 tabs 07/23/22 [Rx Last Taken Unknown] propranolol 10 mg tablet 10 mg PO DAILY 07/23/22 [History Last Taken Unknown] glipizide 5 mg tablet 5 mg PO BID #60 tabs 09/13/22 [Rx Last Taken Unknown] lisinopril 10 mg tablet 10 mg PO DAILY 09/13/22 [History Last Taken Unknown] methylprednisolone 4 mg tablets in a dose pack See Rx Instructions .Route .COMPLEX 09/13/22 [History Last Taken Unknown] montelukast 10 mg tablet 10 mg PO DAILY 09/13/22 [History Last Taken Unknown] Allergy/AdvReac Type Severity Reaction Status Date / Time amoxicillin Allergy Hives Verified 09/13/22 16:59 Social History Smoking Status: Current some day smoker tobacco type: cigarettes and e-cigarettes EXAM Physical Exam Const Vital Signs: 09/13/22 16:58 Temperature 97 F L Temperature Source Temporal Pulse Rate 102 H Respiratory Rate 18 Blood Pressure 125/89 H Blood Pressure Mean 101 Pulse Ox 98 Oxygen Delivery Method Room Air [facility] Lab Data Labs: Laboratory Results - last 24 hr 09/13/22 09/13/22 17:25 17:25 WBC 10.9 RBC 4.90 Hgb 14.1 Hct 42.4 MCV 86.5 MCH 28.8 MCHC 33.3 RDW Std Deviation 42.2 RDW Coeff of Nick 13.5 Plt Count 450 MPV 9.4 Immature Gran % (Auto) 1.100 H Neut % (Auto) 58.0 Lymph % (Auto) 32.5 [place] % (Auto) 6.2 Eos % (Auto) 1.0 Baso % (Auto) 1.2 H Absolute Neuts (auto) 6.3 Absolute Lymphs (auto) 3.55 Nucleated RBC % 0 Sodium 128 L Potassium 3.6 Chloride 92 L Carbon Dioxide 25.0 Anion Gap 11 BUN 20 H Creatinine 1.28 Estim Creat Clear Calc 73.48 Est GFR (MDRD) Af Amer 79 Est GFR (MDRD) Non-Af 66 BUN/Creatinine Ratio 15.6 Glucose 535 H* Calcium 9.5 Total Bilirubin 0.40 AST 18 ALT 40 Alkaline Phosphatase 114 Total Protein 8.2 Albumin 3.9 Globulin 4.3 H Albumin/Globulin Ratio 0.9 Discharge Plan Triage Chief Complaint: Hyperglycemia ED Provider: Mayur Briceño Dx/Rx/DC Orders Clinical Impression: Hyperglycemia, Acute dehydration Instructions: High Blood Sugar (Hyperglycemia), Blood Sugar Check Steps Prescriptions: New glipizide 5 mg tablet 5 mg PO BID Qty: 60 0RF No Action albuterol sulfate 1 INHALER inhaler 1 - 2 puff INHALATION Q4H PRN PRN (Reason: Wheezing) Qty: 1 0RF omeprazole 40 mg capsule,delayed release(DR/EC) 40 mg PO DAILY Label Comments: take 1 capsule by mouth once daily propranolol 10 mg tablet 10 mg PO DAILY Label Comments: take 1 tablet by mouth once daily gabapentin 100 mg capsule 300 mg PO QHS Label Comments: TAKE 2 CAPSULES BY MOUTHEAT BEDTIMEE Dulera 200-5 mcg/actuation HFA aerosol inhaler 1 puff INHALATION BID Label Comments: inhale 1 puff as directed twice a day ondansetron 4 mg tablet,disintegrating 4 mg PO Q6H PRN (Reason: nausea and vomiting) Qty: 10 0RF lisinopril 10 mg tablet 10 mg PO DAILY Label Comments: take 1 tablet by mouth once daily montelukast 10 mg tablet 10 mg PO DAILY Label Comments: take 1 tablet by mouth at bedtime methylprednisolone 4 mg tablets,dose pack See Rx Instructions .ROUTE .COMPLEX Label Comments: use as directed FOLLOW DIRECTIONS ON BACK OF FOIL PACK Rx Instructions: 6 day taper started on saturday, pcp informed pt to stop taking starting today d/t high bg Primary Care Provider: Osmel Lucas Referrals: Osmel Lucas MD [Primary Care Provider] - 3-5 Days Disposition Disposition: Home, Self Care
[2022-09-13] MEDS: glipiZIDE 5 MG Tablet PO (20:23)
== END 2022-09-13 20:24 | disposition home or self-care (01) ==
PROVIDERS: Emergency Provider Emergency Medicine; PCP Family Medicine; Visit Provider Emergency Medicine
DX: E11.65 Type 2 diabetes mellitus with hyperglycemia (principal); E86.0 Dehydration; I10 Essential (primary) hypertension; F17.210 Nicotine dependence, cigarettes, uncomplicated; F17.290 Nicotine dependence, other tobacco product, uncomplicated; Z79.899 Other long term (current) drug therapy; Z91.198 Patient's noncompliance with other medical treatment and regimen for other reason
CPT/HCPCS: 80053; 85025; 96360; 96361; 99284

== ENCOUNTER 2024-05-08 13:19 | Emergency (ER) | payer MEDICAID, SELFPAY ==
[2024-05-08 13:19] VITALS: BP 137/95; PULSE 87; RESP 18; TEMP 36.1; O2SAT 100; BMI 38.9
--- NOTE | 2024-05-08 13:22 | RAD_ITS ---
STUDY: X-RAY - LEFT ANKLE REASON FOR EXAM: Male, 43 years old. Fall TECHNIQUE: 3 view(s) of the ankle. COMPARISON: None. FINDINGS: Findings suggestive of an osteochondroma in the distal shaft of the fibula. Normal medial and lateral malleoli. Normal tibiotalar articulation and ankle mortise. Normal visualized talus and calcaneus. The visualized subtalar, talonavicular, calcaneocuboid and tarsal articulations are normal. Diffuse soft tissue swelling. No fracture or dislocation is seen. 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 Diffuse soft tissue swelling. No fracture or dislocation. Electronically Signed: Drake Valladares MD at 13:39 EDT ,
--- NOTE | 2024-05-08 14:12 | EDS_ITS ---
HPI History of Present Illness Chief Complaint: Lower Extremity Injury Informant: patient Narrative Narrative: Patient is a 43-year-old male with history of asthma, diabetes, hypertension and prior right lower extremity fracture with relatively low velocity presenting with left ankle injury. Patient was getting out of a [employer] yesterday and he thinks he missed the second step and then landed hard on his left foot. He states it everted. He had immediate pain. Initially went to urgent care where he had an x-ray of his ankle and was counseled that the x-ray was negative, given Pete wrap and counseled on RICE therapy. He notes that evening he was elevating his leg and using ice and wearing the Pete wrap but then when he went to walk again he had significant pain. Today he is having increased pain and tingling of his ankle and cannot bear weight at all. Has not taken any medications as he has been told in the past that he should not take NSAIDs because of his asthma and did not have any Tylenol at home. Is concerned that there could be further injury so he came in. Does not any blood thinners. No other complaints or concerns reported at this time. No other injuries reported [facility] Medical History Hypertension Diabetes Home Medications ?Medication ?Instructions ?Recorded ?Last Taken ?Type albuterol sulfate 90 mcg/actuation 1 - 2 puff inhalation Q4H PRN PRN 05/13/20 Unknown Rx aerosol inhaler Wheezing ##1 gabapentin 100 mg capsule 300 mg PO QHS 07/23/22 Unknown History mometasone-formoterol HFA 200 1 puff inhalation BID 07/23/22 Unknown History mcg-5 mcg/actuation aerosol inhaler (Dulera) omeprazole 40 mg capsule,delayed 40 mg PO DAILY 07/23/22 Unknown History release ondansetron 4 mg disintegrating 4 mg PO Q6H PRN nausea and 07/23/22 Unknown Rx tablet vomiting #10 tabs propranolol 10 mg tablet 10 mg PO DAILY 07/23/22 Unknown History glipizide 5 mg tablet 5 mg PO BID #60 tabs 09/13/22 Unknown Rx lisinopril 10 mg tablet 10 mg PO DAILY 09/13/22 Unknown History methylprednisolone 4 mg tablets in See Rx Instructions .Route .COMPLEX 09/13/22 Unknown History a dose pack montelukast 10 mg tablet 10 mg PO DAILY 09/13/22 Unknown History Allergy/AdvReac Type Severity Reaction Status Date / Time amoxicillin Allergy Hives Verified 05/08/24 13:19 Social History Smoking Status: Current some day smoker tobacco type: cigarettes and e- cigarettes ROS ROS ED Constitutional Constitutional ED: Denies chills or fever(s) Musculoskeletal Musculoskeletal: Reports other Details: Left ankle and foot pain Integumentary Reports other Details: Bruising to the left ankle Neurologic Neurologic: Reports paresthesias LLE Hematologic/Lymphatic Hematologic/Lymphatic: Denies easy bleeding or easy bruising EXAM Physical Exam Const Vital Signs: 05/08/24 13:19 Temperature 96.9 F L Temperature Source Temporal Pulse Rate 87 Respiratory Rate 18 Blood Pressure 137/95 H Blood Pressure Mean 109 Pulse Ox 100 Oxygen Delivery Method Room Air Positive well nourished and well developed General Appearance ED: well developed and NAD Neck full ROM Resp normal respiratory effort Cardio regular rate and regular rhythm Extremity Extremity Narrative: Edema and pain with tenderness palpation over the bilateral malleolus and lateral midfoot of the left lower extremity. Associated soft tissue swelling and bruising appreciated. Normal motion of the toes. No obvious deformity. Normal Nick test. Left lower leg compartments are soft however there is t enderness to palpation of the distal half of the lower leg. No tense palpation over the fibular head Neuro oriented x3 Neuro Narrative: Decree strength of the left foot secondary to pain Sensorium / Orientation: alert Motor Exam: Negative for general weakness Skin Skin Narrative: Ecchymosis with layering of bruising of the left lateral ankle and midfoot. MDM MDM MDM Narrative Medical decision making narrative: Patient is evaluated for for left ankle pain after injury yesterday. He had outpatient x-ray but unable to see this. He tells me he did not feel like they really evaluated him thoroughly at the urgent care. On exam patient has significant swelling and does have tenderness mostly to the lateral aspect of the ankle but is also some mild medial tenderness. There is a large amount of swelling also over the proximal fifth and fourth metatarsals making that area more difficult to evaluate. He is layering of bruising. X-ray of the ankle is obtained reviewed by myself as well as radiology which does show an osteochondroma of the distal diaphysis of the fibula and a few soft tissue swelling but no fracture or dislocation. I did add on foot x-ray as well which does not show any acute fracture but does show small plantar spur. This is not related to his presentation today. Patient is good distal pulses. Patient counseled likely this is a particularly bad sprain. Is given dose of Motrin in the ER. Counseled to take NSAIDs in addition to his current RICE therapy for pain. He has crutches at home. Will be given outpatient podiatry follow-up as well. He verbalized agreement understands plan. We did discuss the chance of occult fracture but I do think is likely in the situation. Will be given an air stirrup. Given return precautions. Counseled on dosing of [id number] ibuprofen and Tylenol. 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 Diffuse soft tissue swelling. No fracture or dislocation. Electronically Signed: Drake Valladares MD at 13:39 EDT , Foot X-Ray 05/08/24 14:12 IMPRESSION: Small plantar spur. Electronically Signed: Drake Valladares MD at 14:36 EDT , Discharge Plan Triage Chief Complaint: Lower Extremity Injury ED Provider: Romana Lowry Dx/Rx/DC Orders Clinical Impression: Sprain of ankle, left Instructions: ED Ankle Sprain (Adult) Prescriptions: No Action albuterol sulfate 1 INHALER inhaler 1 - 2 puff INHALATION Q4H PRN PRN (Reason: Wheezing) Qty: 1 0RF omeprazole 40 mg capsule,delayed release(DR/EC) 40 mg PO DAILY Patient Comments: take 1 capsule by mouth once daily propranolol 10 mg tablet 10 mg PO DAILY Patient Comments: take 1 tablet by mouth once daily gabapentin 100 mg capsule 300 mg PO QHS Patient Comments: TAKE 2 CAPSULES BY MOUTHEAT BEDTIMEE Dulera 200-5 mcg/actuation HFA aerosol inhaler 1 puff INHALATION BID Patient Comments: inhale 1 puff as directed twice a day ondansetron 4 mg tablet,disintegrating 4 mg PO Q6H PRN (Reason: nausea and vomiting) Qty: 10 0RF lisinopril 10 mg tablet 10 mg PO DAILY Patient Comments: take 1 tablet by mouth once daily montelukast 10 mg tablet 10 mg PO DAILY Patient Comments: take 1 tablet by mouth at bedtime methylprednisolone 4 mg tablets,dose pack See Rx Instructions .ROUTE .COMPLEX Patient Comments: use as directed FOLLOW DIRECTIONS ON BACK OF FOIL PACK Rx Instructions: 6 day taper started on saturday, pcp informed pt to stop taking starting today d/t high bg glipizide 5 mg tablet 5 mg PO BID Qty: 60 0RF Primary Care Provider: Osmel Lucas Referrals: Osmel Lucas MD [Primary Care Provider] - David Morales DPM [Med Staff - Active Staff] - 1 Week if not improving Activity Restrictions/Additional Instructions: Continue RICE therapy. Wear Pete wrap and/or air stirrup as needed for comfort. Alternate ibuprofen and Tylenol. You may take up to 600 mg of [id number] ibuprofen (three 200 mg tablets) every 6 hours and you may take up to 1000 mg of Tylenol every 8 hours. Print Language: Taiwanese Disposition Disposition: Home, Self Care
--- NOTE | 2024-05-08 14:12 | RAD_ITS ---
STUDY: X-RAY - LEFT FOOT CLINICAL: Male, 43 years old. Injury/Pain TECHNIQUE: 3 view(s) of the foot. COMPARISON: None. FINDINGS: Small plantar spur. Normal visualized subtalar, talonavicular, calcaneocuboid, tarsal and tarsometatarsal articulations. Normal metatarsi. Normal metatarsophalangeal joint of the great toe. Normal tibial and fibular sesamoid bones. Normal interphalangeal joint of the great toe. Normal phalanges of the great toe. Normal second through fifth metatarsophalangeal joints. Normal interphalangeal joints and phalanges of the lesser toes. The soft tissue structures are unremarkable. RAD/Foot min 3 Views IMPRESSION: Small plantar spur. Electronically Signed: Drake Valladares MD at 14:36 EDT ,
[2024-05-08] MEDS: Ibuprofen 600 MG Tablet PO (14:22)
[2024-05-08 16:13] VITALS: BP 132/96; PULSE 85; RESP 16; TEMP 37; O2SAT 96
== END 2024-05-08 16:13 | disposition home or self-care (01) ==
PROVIDERS: Emergency Provider Emergency Medicine; PCP Family Medicine; Visit Provider Emergency Medicine
DX: S93.402A Sprain of unspecified ligament of left ankle, initial encounter (principal); E11.9 Type 2 diabetes mellitus without complications; X50.1XXA Overexertion from prolonged static or awkward postures, initial encounter; Y92.812 Truck as the place of occurrence of the external cause; I10 Essential (primary) hypertension; J45.909 Unspecified asthma, uncomplicated; F17.210 Nicotine dependence, cigarettes, uncomplicated; F17.290 Nicotine dependence, other tobacco product, uncomplicated; Z79.84 Long term (current) use of oral hypoglycemic drugs; Z79.899 Other long term (current) drug therapy
CPT/HCPCS: 73610; 73630; 99283